=== PATIENT | male | born 1955 | race Two or more races ===

== ENCOUNTER 2018-03-16 17:44 | Outpatient (CLI) | payer MEDICARE, MEDICAID ==
--- NOTE | 2018-03-17 09:14 | Diagnostic Imaging Report ---
Indication: Left hand swelling Technique: 3 views left hand Comparison: none Findings: The bones are equivocally somewhat osteoporotic. There is presumably a small erosion at the medial base of the fifth proximal phalanx. No acute fractures. No dislocations. Joint spaces are preserved. Small ossific densities project lateral to the intercarpal joint, may be sequelae of old trauma among other possibilities. The soft tissues appear edematous Impression: No acute process Questionable periarticular erosion base of the fifth proximal phalanx, could represent early arthropathy. Correlate with clinical findings Nonspecific soft tissue edema This agrees with the preliminary interpretation provided overnight by [facility] teleradiology service.
--- NOTE | 2018-03-17 09:14 | Diagnostic Imaging Report ---
Indication: Right hand swelling Technique: 3 views right hand Comparison: None Findings: No acute fractures. No dislocations. Prominent digital vascular calcifications are noted. Lungs are equivocally slightly osteoporotic. Some irregularity of the base of the first proximal phalanx could be the sequela of old trauma. The soft tissues are somewhat edematous Impression: No acute bony trauma Possible old first proximal phalangeal fracture Soft tissue edema
== END 2018-03-16 19:44 | disposition home or self-care (01) ==
LOC: RAD 17:44
DX: M25.542 Pain in joints of left hand (principal); M25.541 Pain in joints of right hand